=== PATIENT | male | born 1980 | race Caucasian/White ===

== ENCOUNTER 2024-03-16 20:01 | Emergency (ER) | payer MEDICARE, SELFPAY ==
[2024-03-16 20:03] VITALS: BP 172/111
[2024-03-16 20:23] LABS: % Basophils 0.5 % (0-2); % Eosinophils 2.5 % (0-6); % Immature Granulocytes 0.2 % (0-0.5); % Lymphocytes 29.3 % (20.5-51.1); % Monocytes 6.6 % (1.7-9.3); % Neutrophils 60.9 % (42.2-75.2); Absolute Basophils 0.1 10^3/uL (0-0.2); Absolute Eosinophils 0.2 10^3/uL (0-0.7); Absolute Lymphocytes 2.8 10^3/uL (1.2-3.4); Absolute Monocytes 0.6 10^3/uL (0.1-0.6); Absolute Neutrophils 5.8 10^3/uL (1.4-6.5); Hematocrit 46.9 % (39.0-52.0); Hemoglobin 16.5 g/dL (13.0-18.0); Mean Corp Hgb Conc. 35.2 g/dL (33.0-37.0); Mean Corpuscular Hgb 30.3 pg (27.0-31.0); Mean Corpuscular Volume 86.2 fL (80.0-94.0); Mean Platelet Volume 9.7 fL (7.4-10.4); Nucleated Red Blood Cells % 0 % (-); Platelet Count 315 10^3/uL (130-400); Red Blood Cell Count 5.44 10^6/uL (4.70-6.10); Red Cell Dist. Width 13.5 % (11.5-14.5); White Blood Cell Count 9.5 10^3/uL (4.8-10.8)
[2024-03-16 20:52] LABS: ALT (SGPT) 77 U/L (0-50); AST (SGOT) 39 U/L (17-59); Albumin 4.7 g/dl (3.5-5.0); Alkaline Phosphatase 42 U/L (38-126); Blood Urea Nitrogen 13 mg/dl (9-20); Calcium 9.3 mg/dl (8.4-10.2); Carbon Dioxide 24 mmol/L (22-30); Chloride 102 mmol/L (98-107); Glucose 103 mg/dl (70-99); Potassium 4.1 mmol/L (3.5-5.1); Sodium 138 mmol/L (135-145); Total Bilirubin 0.7 mg/dl (0.2-1.3); Total Protein 7.8 g/dl (6.3-8.2); eGFR > 60.00
[2024-03-16 23:00] VITALS: BP 141/97
[2024-03-16] MEDS: VIBRAMYCIN 100 MG PO (23:46)
[2024-03-16] MEDS: TORADOL 60 MG IM (23:46)
--- NOTE | 2024-03-17 00:18 | ED.GENMED ---
History of Present Illness
General
Chief Complaint: Headache
Source: patient and previous hospital records (Previous ED visit November 2022 with complaints of abdominal pain. Noted to be significantly hypertensive at that visit as well.)
Exam Limitations: none
Time Seen by Provider: 03/16/24 22:18
Nursing documentation reviewed up to this point in time: agreed with
History of Present Illness
History of Present Illness:
This is a 43-year-old gentleman who has no significant past medical history save for mild intermittent asthma generally well-controlled.
He complains of 1 month history of frontal headache, pressure, sinus pressure along with a sense of feeling that he is in a fog as well as intermittent brief dizziness that is worse with change in position. He denies nausea nor vomiting, denies
fever nor chills, nor sore throat, no nasal discharge. He has had intermittent bilateral ear discomfort but denies ringing in his ears nor loss of hearing.
He does admit to occasional headaches, no previous evaluations but current headache has been persistent over the past month.
He became concerned when he checked his blood pressure today for the first time and it was elevated 170s over 110s.
No prior history of hypertension but admits that he has not followed up with his primary care physician for routine checkup in quite some time.
Previous ED visit November 2022, he presented with complaints of abdominal pain and was noted to be significantly hypertensive at that time as well with initial blood pressure 179/116, improved to 156/105. He has not followed up with his PCP since
that time.
He takes no medicines on a daily basis.
Past History
Past History
ED Past Medical History: Asthma
ED Past Surgical History: Other (Anal abscess drainage)
Social History
Tobacco: Smoker
Alcohol: None
Drug: None
Personal: Single
Living: alone
Employment: Not employed
Family History
Family History: Adopted (Unknown as patient is adopted)
Phy Exam
Physical Exam
Physical Exam:
GENERAL: Alert , in no apparent distress
EYE: pupils equal and reactive. anicteric
NECK: Supple, nontender, no meningismus, no significant adenopathy.
ENT: posterior pharynx is clear, oral mucosa is moist. TMs are mildly retracted bilaterally. Nares have moderately boggy turbinates without evidence of mucopus.
CARDIAC: Regular rate and rhythm. no murmur.
LUNGS: Clear breath sounds bilaterally, no acute respiratory distress, no wheezes/rales/rhonchi
ABDOMEN: Soft, nondistended, without focal tenderness, no r/g, no cvat. normoactive BS.
NEUROLOGICAL: Alert and oriented x3, no focal neuro deficits. Gait is jett and steady.
SKIN: Warm and dry, normal color, skin intact. No rash.
MUSCULOSKELETAL: No C/C/E. peripheral pulses are full and equal b/l. No palpable tenderness.
PSYCH: Normal and appropriate interaction.
Course
Orders/Labs/Results
Orders:
Orders
03/16/24 20:07
EKG [Electrocardiogram (*1)] Urgent
Reason for Study: Hypertension, Benign
EKG- Treatment ONCE
03/16/24 20:18
Complete Blood Count/With Diff Urgent
Comprehensive Metabolic Panel Urgent
03/16/24 22:31
CT Head W/o Iv Contrast Urgent
Comment:
Reason For Exam: frontal headache x 1 month
03/16/24 23:40
Doxycycline [Vibramycin] 100 mg PO NOW STA
Ketorolac [Toradol] 60 mg IM NOW STA
Abnormal Lab Results
03/16/24
20:18
Glucose 103 H mg/dl
(70-99)
ALT 77 H U/L
(0-50)
03/16/24 20:18
03/16/24 20:18
Vital Signs
Initial and Last Documented VS:
Initial Vital Signs
Temp Pulse Resp BP Pulse Ox
98.1 F 89 16 172/111 98
03/16/24 20:03 03/16/24 20:03 03/16/24 20:03 03/16/24 20:03 03/16/24 20:03
Last Documented Vital Signs
Temp Pulse Resp BP Pulse Ox
98.1 F 58 16 141/97 97
03/16/24 20:03 03/16/24 23:00 03/16/24 23:00 03/16/24 23:00 03/16/24 23:00
MDM/Problems Addressed
Differential Diagnosis Includes:
Concern for sinus headache, tension headache, other consideration is intracranial abnormality.
Less likely related to elevated blood pressure as patient noted to have similarly elevated blood pressure during ED visit November 2022 where he presented with abdominal pain at that time. Denied headache at that time and blood pressure was
similarly elevated.
It may be that he has undiagnosed hypertension versus appropriately elevated blood pressure during episodes of pain, discomfort.
Blood pressure has been improving without intervention, 140/97. Improved but not completely normal.
Thus far labs are unremarkable, normal white blood cell count, unremarkable save for minimally elevated ALT. Similarly elevated November 2022.
Normal renal function.
EKG is unremarkable and unchanged from previous November 2022.
Will check CT of the head.
*Radiology
Radiology exam reviewed: radiology read reviewed
*Pulse Oximetry
Patient hypoxic: no
*EKG
Interpreted by ED Provider?: Yes
Comparison EKG: no changes (Unchanged from previous November 2022)
Rate: normal
Rhythm: sinus
[place]: normal axis
Interval: normal interval
QRS Pattern: normal QRS
Ischemia: no ischemia
*Critical Care Note
Total Time (30-74mins, 75-104mins- exclusive of procedures): Not Applicable
Update Note
Update Note:
CAT scan of the head is unremarkable, normal brain but does note bilateral maxillary sinusitis.
I suspect chronic maxillary sinusitis as cause for his headache, sinus headache. Due to ongoing symptoms we will treat with a course of doxycycline, will add Flonase nasal spray.
Will give an IM dose of Toradol for headache and recommend he take Tylenol versus ibuprofen for discomfort. Due to elevated blood pressure would refrain from decongestants.
Discussed importance of prompt follow-up with PCP for recheck.
Return precautions discussed.
ED Attending Note
-
Portions of this chart may have been created with voice recognition software.� Occasional wrong word or��sound alike� substitutions may have occurred due to the inherent limitations of voice recognition software.
Discharge Plan
Departure
Patient Disposition: Home (Routine Discharge)
Date of Disposition: 03/17/24
Time of Disposition: 00:19
Patient with high blood pressure during this ER visit?: Yes
Condition: Good
Discharge Problem:
Sinus headache, Chronic maxillary sinusitis, Blood pressure elevated without history of HTN
Instructions: Sinusitis in adults, BLOOD PRESSURE
Prescriptions:
New
doxycycline monohydrate 100 mg capsule
100 mg PO BID Qty: 20 1RF
fluticasone propionate 50 mcg/actuation spray,suspension
2 spray intranasal DAILY Qty: 16 0RF
No Action
multivitamin Tablet
1 tab PO DAILY
Referrals:
Oneyda Li DO [Family Provider] - Call in 1-3 days for appt
Interventions
Interventions:
*Risk Screen - Suicide Last Done: 03/16/24 20:03
*General Assessment Last Done: 03/16/24 20:03
*Neglect/Abuse Screening Last Done: 03/16/24 20:03
*ED COVID-19 Vaccine History Last Done: 03/16/24 22:16
ED- Neurological Assessment Last Done: 03/16/24 22:14
Discharge Date and Time
Print Language: SYRIAC
== END 2024-03-17 00:35 | disposition home or self-care (01) ==
LOC: EMR 20:01
PROVIDERS: Emergency Medicine; EMERGENCY PHYSICIAN Emergency Medicine; FAMILY PHYSICIAN Family Medicine
DX: R51.9 Headache, unspecified (principal); J32.0 Chronic maxillary sinusitis; R03.0 Elevated blood-pressure reading, without diagnosis of hypertension; J45.20 Mild intermittent asthma, uncomplicated; I10 Essential (primary) hypertension
CPT/HCPCS: 99284; 96372; 70450; 80053; 85025; 93005